=== PATIENT | male | born 1950 | race Caucasian/White ===

== ENCOUNTER 2024-11-27 11:31 | Emergency (ER) | payer MEDICARE, SELFPAY ==
--- NOTE | ~2024-11-27 | XR_ITS ---
EXAM/ PROCEDURE: XR shoulder RT min 2V - 11/27/2024 11:52 CDT HISTORY: 74 years old Male with pain, injury COMPARISON: None available TECHNIQUE: Three view(s) FINDINGS/ IMPRESSION: There are no fractures or dislocations.Joint space narrowing, subchondral sclerosis, subchondral cyst formation and osteophyte formation, compatible with mild osteoarthritis. Reviewed, dictated and finalized at location A.
--- NOTE | ~2024-11-27 | XR_ITS ---
EXAMINATION: [id number] DATE: 11/27/2024 12:11 INDICATION: Anterior mid right chest and rib pain and right shoulder pain post injury TECHNIQUE: A frontal inspiratory view of the chest and 3 views of the right ribs were obtained. COMPARISON: None FINDINGS: No rib fractures identified. No pneumothorax. No focal infiltrates, pleural effusion or pulmonary zandra ma. Heart size is normal. Tortuous thoracic aorta. Mild right glenohumeral and acromioclavicular oste oarthritis. Moderate sized subacromial spur. IMPRESSION: 1. No rib fracture or acute cardiopulmonary disease. Reviewed, dictated and finalized at location A.
[2024-11-27 11:44] VITALS: BP 119/65; PULSE 68; RESP 16; TEMP 36.2; O2SAT 99
--- NOTE | 2024-11-27 11:52 | ED.UPPEXIN ---
HPI - Extremity Injury (Upper) General Chief Complaint: Extremity Injury, Upper Stated Complaint: Right Shoulder Pain Source: patient Mode of arrival: ambulatory Limitations: no limitations History of Present Illness HPI narrative: Patient is a 74 year old male who presents to the clinic with complaints of right shoulder and rib pain since one hour ago. Patient states that he was mowing the lawn and tripped and fell. He landed on his right shoulder. He did put ice on it, but has not taken any medication over the counter. Denies hitting head, neck pain, or LOC. Denies any shortness of breath, chest pain, numbness, tingling, or radiation of pain. Related Data Home Medications ?Medication ?Instructions ?Recorded ?Confirmed ?Last Taken ?Type amlodipine 5 mg tablet mg 11/27/24 Unknown History apixaban 5 mg tablet (Eliquis) 5 mg PO BID 11/27/24 11/27/24 Unknown History atorvastatin 40 mg tablet mg 11/27/24 Unknown History dorzolamide 2 % eye drops drp 11/27/24 Unknown History latanoprost 0.005 % eye drops drp 11/27/24 Unknown History losartan 100 mg tablet mg 11/27/24 Unknown History Allergies Allergy/AdvReac Type Severity Reaction Status Date / Time No Known Allergies Allergy Verified 11/27/24 11:48 Review of Systems Review of Systems: CONSTITUTIONAL: Denies body aches, fever, chills EYES: Denies visual changes ENT: Denies rhinorrhea, congestion CARDIOVASCULAR: Denies chest pain, palpitations, or edema. RESPIRATORY: Denies cough or dyspnea. SKIN: Denies rash, itching, or wounds. MUSCULOSKELETAL: Reports right shoulder and right rib pain. NEUROLOGIC: Denies headache, numbness, tingling, or weakness. All systems reviewed & are unremarkable except as noted in HPI and below PMFSH Comments At time of signature, I have reviewed and agree with nursing past medical, surgical, social and family history unless otherwise noted. Please see nursing chart for further information. There is no relevant family history pertinent to the presenting complaint. Exam Narrative: GENERAL: Well-appearing, well-nourished, and in no acute distress. HEAD: Normocephalic, atraumatic. NECK: Supple. CHEST: Speaks in full sentences. No respiratory distress. HEART: Regular rate and rhythm. Normal and equal peripheral pulses. EXTREMITIES: Right shoulder has decreased strength but normal sensation, decreased range of motion with flexion/extension/rotation and endorses pain with movement. No edema or ecchymosis, No point tenderness. No open wounds, or obvious deformity; pulse palpable and equal bilaterally, skin warm, dry, pink. Capillary refill less than 3 seconds. Distal sensation intact. Right ribs - endorse pain with movement. No edema or ecchymosis. No point tenderness. No open wounds or obvious deformity. SKIN: Warm, dry, no rash. NEURO: Alert and oriented x3. PSYCH: Normal mood and affect Course Course Level of Care: Express Care Visit Vital Signs Vital signs: Vital Signs Temperature 97.2 F L 11/27/24 11:44 Pulse Rate 68 11/27/24 11:44 Respiratory Rate 16 11/27/24 11:44 Blood Pressure 119/65 11/27/24 11:44 Pulse Oximetry 99 11/27/24 11:44 Temperature 97.2 F L 11/27/24 11:44 Pulse Rate 68 11/27/24 11:44 Respiratory Rate 16 11/27/24 11:44 Blood Pressure 119/65 11/27/24 11:44 Pulse Oximetry 99 11/27/24 11:44 Reviewed. MDM - Extremity Injury (Upper) MDM Narrative Medical decision making narrative: Discussed physical exam findings and xray. Sling applied. Ortho referral. Ice pack given. Advised supportive measures and signs/symptoms to go to the ER. Pt is appropriate for outpatient treatment and follow up. Differential Diagnosis Differential diagnosis: Likely dislocation of shoulder and other (rib contusion, rib fracture, shoulder sprain, shoulder fracture) Imaging Data Radiologist's impression: ITS Impressions Ribs w/Chest X-Ray 11/27/24 12:18 IMPRESSION: 1. No rib fracture or acute cardiopulmonary disease. Critical Care Time Critical Care Time Critical Care Time: No Discharge Plan Discharge Clinical Impression: Right shoulder strain, Rib pain on right side Patient Disposition: Home Condition: Stable Instructions: How to Use a Sling (ED), Rotator Cuff Injury Exercises (DC) Additional Instructions: Rest. Avoid pushing, pulling, lifting or anything that worsens the symptoms Tylenol every 8 hours as needed Alternate ice/heat to the site. Lidocaine or salon pas pain patch or use pain cream like icy/hot or biofreeze. Please follow up with Orthopedics for further evaluation - see referral Follow up with your primary care provider as needed in 1 week Go to the ER for worsening symptoms or concerns Patient Language: Welsh Prescriptions: No Action latanoprost 0.005 % drops atorvastatin 40 mg tablet amlodipine 5 mg tablet losartan 100 mg tablet dorzolamide 2 % drops Eliquis 5 mg tablet 5 mg PO BID Follow-up/Referrals: Terry,Rigoberto Becerril MD [Primary Care Provider] - Cr Gimenez MD [Physician] - Time of Disposition: 12:32
== END 2024-11-27 12:56 | disposition home or self-care (01) ==
PROVIDERS: PCP Internal Medicine
DX: S46.911A Strain of unspecified muscle, fascia and tendon at shoulder and upper arm level, right arm, initial encounter (principal); W01.0XXA Fall on same level from slipping, tripping and stumbling without subsequent striking against object, initial encounter; Y93.H2 Activity, gardening and landscaping; R07.89 Other chest pain; Z79.01 Long term (current) use of anticoagulants; I10 Essential (primary) hypertension; E78.00 Pure hypercholesterolemia, unspecified; H40.9 Unspecified glaucoma
CPT/HCPCS: 71101; 73030; 99204; A4565; G0463

== ENCOUNTER 2025-04-26 09:44 | Emergency (ER) | payer MEDICARE, SELFPAY ==
[2025-04-26 09:53] VITALS: BP 134/66; PULSE 75; RESP 16; TEMP 36.2; O2SAT 97
--- NOTE | 2025-04-26 11:05 | ED_ITS ---
HPI - URI/Sore Throat General Chief Complaint: Upper Respiratory Infection Stated Complaint: Cough Time Seen by Provider: 04/26/25 10:56 Source: patient and RN notes reviewed Mode of arrival: ambulatory Limitations: no limitations History of Present Illness HPI Narrative: 74 year old presents today complaining of an 11 day history of congestion, PND, cough. Cough is worsened with deep breath. Denies fever or shortness of breath. He has tried Sudafed PE, Mucinex, and Delsym with some improvement. States his symptoms had improved 4 days ago then worsened again last night. Related Data Home Medications ?Medication ?Instructions ?Recorded ?Confirmed ?Last Taken ?Type amlodipine 5 mg tablet mg 11/27/24 Unknown History apixaban 5 mg tablet (Eliquis) 5 mg PO BID 11/27/24 Unknown History atorvastatin 40 mg tablet mg 11/27/24 Unknown History dorzolamide 2 % eye drops drp 11/27/24 Unknown Histor y latanoprost 0.005 % eye drops drp 11/27/24 Unknown Hi story losartan 100 mg tablet mg 11/27/24 Unknown History semaglutide 0.25 mg or 0.5 mg (2 mg subcut 04/26/25 U nknown History mg/3 mL) subcutaneous pen injector (Ozempic) semaglutide 14 mg tablet (Rybelsus) mg PO 04/26/25 Un known History Allergies Allergy/AdvReac Type Severity Reaction Status Date / Time No Known Allergies Allergy Verified 04/26/25 09:49 [facility] Past Medical History Medical History (Updated 04/26/25 @ 11:11 by Laisha Vickers, [employer]PER[employer], [employer]) Hypertension Afib Comments At time of signature, I have reviewed and agree with nursing past medical, surg ical, social and family history unless otherwise noted. Please see nursing chart for further information. There is no relevant family history pertinent to the presenting complaint Exam Narrative: GENERAL: Well-appearing, well-nourished, and in no acute distress. HEAD: Normocephalic, atraumatic. EYES: EOMI. No redness or drainage. Conjunctivae normal. ENT: Mucous membranes pink and moist. Nares congested with rhinorrhea. TMs normal bilaterally. Throat normal. Uvula midline. NECK: Normal AROM. Supple. No lymphadenopathy. CHEST: No respiratory distress. Clear to auscultation. HEART: Regular rate and rhythm. No murmur appreciated. EXTREMITIES: Normal range of motion. No edema. SKIN: Warm, dry, no rash. Capillary refill normal. Normal skin turgor. NEURO: No focal deficits. Alert and oriented x3. Gait steady. PSYCH: Normal affect. No signs of depression or anxiety. Course Course Level of Care: Express Care Visit Vital Signs Vital signs: Vital Signs Temperature 97.1 F L 04/26/25 09:53 Pulse Rate 75 04/26/25 09:53 Respiratory Rate 16 04/26/25 09:53 Blood Pressure 134/66 04/26/25 09:53 Pulse Oximetry 97 04/26/25 09:53 Temperature 97.1 F L 04/26/25 09:53 Pulse Rate 75 04/26/25 09:53 Respiratory Rate 16 04/26/25 09:53 Blood Pressure 134/66 04/26/25 09:53 Pulse Oximetry 97 04/26/25 09:53 Reviewed MDM - URI/Sore Throat MDM Narrative Medical decision making narrative: 74 year old presents today complaining of an 11 day history of congestion, PND, cough. Cough is worsened with deep breath. Denies fever or shortness of breath. He has tried Sudafed PE, Mucinex, and Delsym with some improvement. States his symptoms had improved 4 days ago then worsened again last night. Upon exam, patient is mildly ill appearing with nasal congestion rhinorrhea. Lung sounds normal. Patient is exhibiting symptoms of double sickening. He will be treated with some Augmentin for likely secondary bacterial infection due to sinusitis. He may continue [id number] medication for symptoms as well. Patient agrees with plan. Vital signs stable. Anticipatory guidance and ED precautions given. Differential Diagnosis Differential diagnosis: Likely upper respiratory infection, sinusitis, viral infection, bronchitis and other (Pneumonia) Critical Care Time Critical Care Time Critical Care Time: No Discharge Plan Discharge Clinical Impression: Sinusitis Qualifiers: Sinusitis location: unspecified location Chronicity: acute Recurrence: non- recurrent Qualified Code(s): J01.90 - Acute sinusitis, unspecified Patient Disposition: Home Condition: Stable Instructions: Sinusitis (ED) Additional Instructions: Please take the Augmentin as prescribed until gone. You may continue [id number] medication as needed for symptoms. Follow-up with your PCP in 3 days if symptoms are not improving. Patient Language: Comoran Prescriptions: New amoxicillin-pot clavulanate 875-125 mg tablet 1 tablet PO Q12H 7 Days Qty: 14 0RF No Action Rybelsus 14 mg tablet PO Ozempic 0.25 mg or 0.5 mg (2 mg/3 mL) pen injector SUBCUT latanoprost 0.005 % drops atorvastatin 40 mg tablet amlodipine 5 mg tablet losartan 100 mg tablet dorzolamide 2 % drops Eliquis 5 mg tablet 5 mg PO BID Follow-up/Referrals: Terry,Rigoberto Becerril MD [Primary Care Provider] Time of Disposition: 11:11
== END 2025-04-26 11:12 | disposition home or self-care (01) ==
PROVIDERS: Emergency Provider Nurse Practitioner; PCP Internal Medicine
DX: J01.90 Acute sinusitis, unspecified (principal); I10 Essential (primary) hypertension; I48.91 Unspecified atrial fibrillation; Z79.01 Long term (current) use of anticoagulants
CPT/HCPCS: 99213; G0463